=== PATIENT | female | born 1990 | race Hispanic/Latino ===

== ENCOUNTER 2017-07-19 05:14 | Inpatient (IN) | payer OTHER ==
[2017-07-19 05:48] VITALS: BMI 43.8
[2017-07-19] MEDS ORDERED: Acetaminophen 500 MG TAB PO PRN (05:51)
[2017-07-19] MEDS ORDERED: Docusate 100 MG CAP PO PRN (05:52)
[2017-07-19] MEDS ORDERED: Promethazine HCl 25 MG/ML VIAL IM PRN ×3 (05:52→08:58)
[2017-07-19] MEDS ORDERED: Ondansetron HCl/PF 4 MG/2 ML Vial IVP PRN ×4 (05:52→08:58)
[2017-07-19] MEDS ORDERED: Zolpidem Tartrate 5 MG TAB PO PRN ×2 (05:53→08:58)
[2017-07-19] MEDS ORDERED: Bicitra 30 ML UDCUP PO SCH (06:00)
[2017-07-19] MEDS ORDERED: Ibuprofen 800 MG TAB PO SCH (06:00)
[2017-07-19 06:24] LABS: Hematocrit 33.9 % (36.0-47.0); Mean Platelet Volume 10.2 fL (7.4-10.4); Red Blood Cell (RBC) Count 4.12 mill/uL (4.20-5.40); White Blood Cell (WBC) Count 10.4 thou/uL (4.8-10.8)
[2017-07-19] MEDS: Lactated Ringer's 1,000 ML IV SCH ×4 (06:46→22:39)
[2017-07-19] MEDS ORDERED: PHENYLEPHRINE-NS 100 MCG/ML 10 ML SYRINGE ONE (07:17)
[2017-07-19] MEDS ORDERED: Midazolam HCl 2 mg/2 ml Vial ONE (07:17)
[2017-07-19] MEDS ORDERED: Oxytocin 10 UNITS/ML VIAL ONE (07:17)
[2017-07-19] MEDS ORDERED: Ketorolac Tromethamine 30 MG/ML VIAL ONE (07:17)
[2017-07-19] MEDS ORDERED: Ondansetron HCl/PF 4 MG/2 ML Vial ONE (07:27)
[2017-07-19] MEDS ORDERED: Naloxone HCl 0.4 mg/ml Vial IVP PRN ×2 (08:49)
[2017-07-19] MEDS ORDERED: Meperidine HCl/PF 25 MG/ML VIAL SLOW IVP PRN (08:49)
[2017-07-19] MEDS ORDERED: Naloxone HCl 0.4 mg/ml Vial IV PRN (08:49)
[2017-07-19] MEDS ORDERED: HYDROmorphone 2 MG/ML VIAL SLOW IVP PRN (08:49)
[2017-07-19] MEDS ORDERED: Eucerin (Mineral Oil/Petrolatum,White) 30 gm Jar TOP PRN (08:49)
[2017-07-19] MEDS ORDERED: diphenhydrAMINE HCl 50 MG/ML 1 ML VIAL IVP PRN (08:49)
[2017-07-19] MEDS ORDERED: Promethazine HCl 25 MG SUPP PR PRN (08:49)
[2017-07-19] MEDS ORDERED: Lanolin Ointment 7 GM TUBE TOP PRN (08:58)
[2017-07-19] MEDS ORDERED: diphenhydrAMINE HCl 25 MG CAP PO PRN (08:58)
[2017-07-19] MEDS ORDERED: Adacel (T-DAP) 0.5 ML VIAL IM ONE (08:58)
[2017-07-19] MEDS ORDERED: Simethicone Chewable 80 MG TAB PO PRN (09:00)
[2017-07-19] MEDS ORDERED: Ketorolac Tromethamine 30 MG/ML VIAL IVP SCH (09:00)
[2017-07-19] MEDS ORDERED: Prenatal Vitamin 1 TAB PO SCH (09:00)
[2017-07-19] MEDS ORDERED: Communication Order-Pharmacy FS SCH (09:00)
[2017-07-19] MEDS ORDERED: Ferrous Sulfate 325 MG TAB PO SCH (09:00)
[2017-07-19] MEDS: Docusate (Surfak) 240 MG CAP PO SCH ×2 (09:32→21:08)
[2017-07-19] MEDS: Prenatal Vitamin 1 TAB PO SCH (09:33)
--- NOTE | 2017-07-19 10:39 | OP ---
DATE OF PROCEDURE: 07/19/2017 PREOPERATIVE DIAGNOSES: 1. A 26-year-old female at 39 weeks plus with a history of a low transverse secti on for cephalopelvic disproportion, scheduled repeat low transverse section this morning. 2. History of gonorrhea this with treatment and test of cure negative. 3. Anemia of . 4. Elevated body mass index. 5. ASCUS Pap. 6. Gestational thrombocytopenia. POSTOPERATIVE DIAGNOSES: 1. A 26-year-old female at 39 weeks plus with a history of a low transverse secti on for cephalopelvic disproportion, scheduled repeat low transverse section this morning. 2. History of gonorrhea this with treatment and test of cure negative. 3. Anemia of . 4. Elevated body mass index. 5. ASCUS Pap. 6. Gestational thrombocytopenia. 7. Liveborn male fetus with Apgars of 7 and 9 at 1 and 5 minutes respectively. ESTIMATED BLOOD LOSS: 500 mL. SURGEON: Dr. Wendi Santo SALES FORCE ADMINISTRATOR: Dr. Bennie Dang PROCEDURE: Vacuum assisted repeat low transverse section. CLINICAL HISTORY: This patient is a 26-year-old female, -0-2-1 with a history of a te rm live by a low transverse section for cephalopelvic disproportion. The patient had an uneventful other than anemia and borderline gestational thrombocytopenia. The patient was compliant through her entire . She was late presentation to care. Given her history, she was counseled on the planning for delivery by repeat low transverse section. The risk s, benefits and possible complications were described and the patient wished to proceed. DETAILS OF PROCEDURE: The patient was taken to the operating room. Spinal anesthesia was obtained. She was placed in the supine position. A Amador catheter was placed. She was prepped and draped i n the usual sterile fashion and after testing for adequate anesthesia, an incision was made over her previous incision in the low pelvis in a Pfannenstiel manner. This incision was carried down with the Bovie cautery ligating blood vessels and controlling bleeding as we approached the fascia. The fascia was nicked in the midline and this incision was extended with a combination of sharp and caut jewels dissection. The Aldo clamps were used x2 to elevate the superior edge of the rectus sheath an d a scalpel was used to dissect the rectus muscles off of the superior fascial border. In similar f ashion, the clamps were used to deflect the inferior fascial edge from the rectus and pyramidalis mu scles with sharp dissection. Two hemostat clamps were used to elevate the rectus linea alba in the midline and sharp dissection was used to separate the muscles and breech the peritoneum. Once the p eritoneum was entered, the incision was extended with traction. The bladder blade was placed. A bl adder flap was created and an incision was made in the lower uterine segment with the scalpel with g entle successive swipes. The amniotomy was then performed with clear fluid. The incision was exten ded and the surgeon's hand was placed into the uterus to lift the vertex into the incision. W ith pressure the vertex was partially delivered through the incision; however, with the matern al obesity and deep pelvis, it was difficult to navigate the opening. A Kiwi vacuum was used and ap plied to the head over the sagittal sutures avoiding the soft spots. One pull with appropriate pressure was achieved and the head was delivered. There was a nuchal cord that was noted and easily reduced. The anterior shoulder followed by the posterior shoulder, follo wed the remainder of the infant's body was delivered. The infant cried spontaneously and was bulb s uctioned as the surgical site. The cord was doubly clamped and cut. Cord blood was obtained. The was handed over to the neonatology nurses in attendance to the delivery and the placenta was then extracted manually intact with a 3-vessel cord. The uterus was then exteriorized and cleansed of all debris and the incision was closed in a running locking fashion with chromic suture. A reapp roximation of the bladder flap was attempted; however, because of the tension noted this was abandon ed. Excellent hemostasis was noted over the incision. The gutters were cleansed of all debris and Seprafilm was placed over the anterior surface of the uterus. The uterus was then placed back into the abdomen and the peritoneum was closed with a running suture. The rectus muscles were then reapp roximated with interrupted sutures with excellent recovery of the musculature to its natural place. The prefascial borders were then cleansed of all debris and the fascia was closed towards the midli ne in a running fashion and these 2 sutures were then secured together in the midline. The subcutan eous tissue was then irrigated and Bovie cautery was used to correct any bleeding. The subcutaneous tissues were then closed with interrupted sutures of 2-0 plain gut ties and the skin was closed wit h a 3-0 Vicryl with excellent hemostasis. A pressure dressing was placed after the Steri-Strips an d Mastisol were placed and the patient was allowed to recover in her Labor and Delivery room where s he was previously before the surgery. All needle, sponge, lap, and instrument counts were correct x 2 at the end of the procedure. There were no other issues surrounding this delivery. Please refer to the vacuum assist form for the details on the vacuum. Weight was unavailable at the time of the delivery. There were no other issues with this surgery.
[2017-07-19] MEDS ORDERED: Meperidine HCl/PF 25 MG/ML VIAL ONE (11:19)
[2017-07-19] MEDS: Ferrous Sulfate 325 MG TAB PO SCH (12:09)
[2017-07-19] MEDS: Ketorolac Tromethamine 30 MG/ML VIAL IVP PRN (18:58)
[2017-07-20] MEDS: Ketorolac Tromethamine 30 MG/ML VIAL IVP PRN (03:24)
[2017-07-20 05:24] LABS: Hematocrit 27.6 % (36.0-47.0); Mean Platelet Volume 10.1 fL (7.4-10.4); Red Blood Cell (RBC) Count 3.28 mill/uL (4.20-5.40); White Blood Cell (WBC) Count 7.8 thou/uL (4.8-10.8)
[2017-07-20] MEDS: Lactated Ringer's 1,000 ML IV SCH ×2 (07:36→14:28)
[2017-07-20] MEDS: Ferrous Sulfate 325 MG TAB PO SCH ×2 (09:56→17:23)
[2017-07-20] MEDS: Prenatal Vitamin 1 TAB PO SCH (09:56)
[2017-07-20] MEDS: Docusate (Surfak) 240 MG CAP PO SCH ×2 (09:56→19:41)
[2017-07-20] MEDS: HYDROcodone/Acetaminophen 5/325 mg Tablet PO PRN ×2 (13:16→19:41)
[2017-07-20] MEDS: Ibuprofen 800 MG TAB PO SCH ×2 (14:28→21:15)
[2017-07-21] MEDS: HYDROcodone/Acetaminophen 5/325 mg Tablet PO PRN ×3 (02:30→13:45)
[2017-07-21] MEDS: Lactated Ringer's 1,000 ML IV SCH ×3 (02:54→14:45)
[2017-07-21] MEDS: Ibuprofen 800 MG TAB PO SCH ×2 (05:59→13:45)
[2017-07-21] MEDS: Ferrous Sulfate 325 MG TAB PO SCH (08:43)
[2017-07-21] MEDS: Docusate (Surfak) 240 MG CAP PO SCH (08:43)
[2017-07-21] MEDS: Prenatal Vitamin 1 TAB PO SCH (08:45)
[2017-07-21 08:59] VITALS: BP 117/58; TEMP 97.9
== END 2017-07-21 17:08 | disposition home or self-care (01) | DRG 765 ==
LOC: UNDOADMIN 05:14 → L&D 05:14 → 3SW 11:48
PROVIDERS: ADMIT Obstetrics & Gynecology; ATTEND Obstetrics & Gynecology
PROC: 10D00Z1 Extraction of Products of Conception, Low, Open Approach (ICD-10-PCS; principal; 2017-07-19)
PROC: 10907ZC Drainage of Amniotic Fluid, Therapeutic from Products of Conception, Via Natural or Artificial Opening (ICD-10-PCS; 2017-07-19)
DX: O99.02 Anemia complicating childbirth (principal); O99.12 Other diseases of the blood and blood-forming organs and certain disorders involving the immune mechanism complicating childbirth; Z68.41 Body mass index [BMI] 40.0-44.9, adult; I97.89 Other postprocedural complications and disorders of the circulatory system, not elsewhere classified; Z37.0 Single live birth; Z3A.39 39 weeks gestation of pregnancy; Z67.10 Type A blood, Rh positive; F41.9 Anxiety disorder, unspecified; O99.214 Obesity complicating childbirth; O69.81X0 Labor and delivery complicated by cord around neck, without compression, not applicable or unspecified
CPT/HCPCS: 36415; 85027; 86780; 86850; 86900; 86901; 87340; 93005; 93010; J1200; J1885; J2175; J2250; J2270; J2274; J2405; J2590

== ENCOUNTER 2019-01-02 17:21 | Emergency (ER) | payer SELFPAY ==
[2019-01-02 18:05] LABS: Bilirubin Small (Negative); Blood, Urine Negative (Negative); Clarity CLEAR (Clear); Glucose, Urine (Dipstick) Negative (Negative); Leukocyte Negative (Negative); Nitrite Negative (Negative); Protein, Urine (Dipstick) 100 mg/dL (Neg-Trace); pH, Urine 5.5 (5.0-9.0)
[2019-01-02 18:07] LABS: Bacteria/HPF None Seen HPF (None Seen)
[2019-01-02 18:10] LABS: Specific Gravity, Urine 1.054 (1.002-1.036)
[2019-01-02 18:11] LABS: Pathc Cast-AUWi Flag 4.35 (0-2.49)
[2019-01-02 18:20] LABS: Hyaline Casts/LPF 0-3 HYALINE CAST LPF (0-3 Hyaline); Manual Microscopic Reviewed? No Path Casts Seen; Renal Epithelial None Seen HPF (0-3); Transitional Epithelial NONE SEEN HPF (0-3)
--- NOTE | 2019-01-02 19:35 | RAD ---
CHEST TWO VIEWS 01/02/19 HISTORY: Vomiting. Chest pain. FINDINGS: No comparison. The cardiac silhouette and pulmonary vasculature are unremarkable. Mediastinum is midl ine. No confluent air space consolidation, pneumothorax, or pleural fluid are apparent. IMPRESSION: No active cardiopulmonary abnormalities are demonstrated. POS: [facility]
[2019-01-02 19:53] LABS: Pregnancy Test - Urine (BHCG) Negative (Negative); Pregu Control Background? CLEAR/WHITE (CLR/WHITE); Pregu Control Bar Appear? YES (CONTROL BAR); Specific Gravity 1.054 (1.002-1.036)
== END 2019-01-02 20:17 | disposition home or self-care (01) ==
LOC: ERS 17:21
DX: K52.9 Noninfective gastroenteritis and colitis, unspecified (principal); B34.9 Viral infection, unspecified
CPT/HCPCS: 71046; 81003; 81015; 81025; 87804

== ENCOUNTER 2022-02-06 14:00 | Emergency (ER) | payer OTHER, SELFPAY | END 2022-02-06 14:40 | disposition home or self-care (01) | LOC: ERS 14:00 | DX: L03.113 Cellulitis of right upper limb (principal) | CPT/HCPCS: 99283 ==